=== PATIENT | female | born 1965 | race Caucasian/White ===

== ENCOUNTER 2020-09-17 07:50 | Outpatient (RCR) | payer SELFPAY ==
[2020-09-17] MEDS ORDERED: LISI1TAB26 PO (13:10)
== END 2020-09-17 13:17 | disposition home or self-care (01) ==
LOC: PREOP 07:50
PROVIDERS: ATTEND Surgery
DX: Z01.818 Encounter for other preprocedural examination (principal); K42.9 Umbilical hernia without obstruction or gangrene

== ENCOUNTER → 2020-09-21 | Outpatient (CLI) | payer SELFPAY ==
[~2020-09-21] MED LIST: LISI1TAB26 PO
--- NOTE | 2020-09-22 09:57 | NUR ---
Notified patient of positive COVID test. She reports no symptoms and was very disputatious in telling me that she didn't believe the results and that I was lying and preventing her in having surgery for the pain she was in. I assured her that Dr Sood would make the decision in her surgery and if she needed it due to risk of life it would be done. She hung up on me.
== END ==
LOC: LAB FS 08:56
PROVIDERS: ATTEND Surgery
DX: Z01.812 Encounter for preprocedural laboratory examination (principal); U07.1 COVID-19; K42.9 Umbilical hernia without obstruction or gangrene
CPT/HCPCS: 87635

== ENCOUNTER 2020-10-15 05:50 | Outpatient (RCR) | payer SELFPAY | END 2020-10-15 10:26 | disposition home or self-care (01) | LOC: PREOP 05:50 | PROVIDERS: ATTEND Surgery | DX: Z01.812 Encounter for preprocedural laboratory examination (principal); K42.9 Umbilical hernia without obstruction or gangrene ==

== ENCOUNTER 2020-10-22 06:04 | Day surgery (SDC) | payer OTHER ==
[2020-10-22] VITALS (10 sets, daily range): BP systolic 106–164; BP diastolic 8–91
[~2020-10-22] VITALS: Ht 160 cm; Wt 101.0 kg
[2020-10-22] MEDS ORDERED: ASPI-999 PO (06:52)
[2020-10-22] MEDS: LACTATED RINGERS 1,000 ML IV PRN ×2 (06:58→09:30)
[2020-10-22] MEDS ORDERED: ceFAZolin 2 GM IV Premixed 50 ML IV ONE (07:00)
[2020-10-22] MEDS ORDERED: GLYCOPYRROLATE 0.2 MG/ML (ROBINUL) 2 ML VIAL ONE (07:09)
[2020-10-22] MEDS ORDERED: SEVOFLURANE (ULTANE) 15 ML INHAL SOLN ONE ×2 (07:09→08:59)
[2020-10-22] MEDS ORDERED: MIDAZOLAM 2 MG/2 ML (VERSED) VIAL ONE (07:09)
[2020-10-22] MEDS ORDERED: ONDANSETRON 4 MG/2 ML (SDV) Z0FRAN ONE (07:09)
[2020-10-22] MEDS ORDERED: ROCURONIUM 10 MG/ML 5 ML SYRINGE IV ONE (07:09)
[2020-10-22] MEDS ORDERED: proPOfol 200 MG/20 ML (DIPRIVAN) VIAL IV ONE (07:09)
[2020-10-22] MEDS ORDERED: NEOSTIGMINE 3 MG/3 ML VIAL ONE (07:09)
[2020-10-22] MEDS ORDERED: LIDOCAINE PF 2% 5 ML (XYLOCAINE) VIAL ONE (07:09)
[2020-10-22] MEDS ORDERED: fentaNYL INJECTION 100 MCG/2 ML AMP ONE (07:09)
[2020-10-22 07:10] LABS: BASOPHILS % (AUTO) 1 % (0-10); EOSINOPHILS # (AUTO) 0.1 10^3/uL (0.0-0.3); EOSINOPHILS % (AUTO) 3 % (0-10); HEMATOCRIT 40 % (35-52); HEMOGLOBIN 13.2 g/dL (11.5-16.0); LYMPHOCYTES # (AUTO) 1.7 10^3/uL (1.0-4.0); LYMPHOCYTES % (AUTO) 30 % (12-44); MEAN CORPUSCULAR HEMOGLOBIN 29 pg (25-34); MEAN CORPUSCULAR HGB CONC 33 g/dL (32-36); MEAN CORPUSCULAR VOLUME 87 fL (80-99); MEAN PLATELET VOLUME 9.6 fL (9.0-12.2); MONOCYTES # (AUTO) 0.6 10^3/uL (0.0-1.0); MONOCYTES % (AUTO) 11 % (0-12); NEUTROPHILS # (AUTO) 3.1 10^3/uL (1.8-7.8); NEUTROPHILS % (AUTO) 56 % (42-75); PLATELET COUNT 220 10^3/uL (130-400); WHITE BLOOD COUNT 5.6 10^3/uL (4.3-11.0)
[2020-10-22] MEDS ORDERED: LIDOCAINE/EPI 1%-1:100,000 (XYLOCAINE) 50 ML ONE (07:21)
--- NOTE | 2020-10-22 09:06 | Progress Note-Post Operative ---
Post-Operative Progess Note Surgeon (s)/Milk Wagon Driver (s) Surgeon YASEMIN JAMA DO Milk Wagon Driver: Dr. Mark to assist in retraction dissection and closure. Pre-Operative Diagnosis UMBILICAL HERNIA Post-Operative Diagnosis Incarcerated umbilical hernia Procedure & Operative Findings Date of Procedure 10/22/20 Procedure Performed/Findings PROCEDURE: Laparoscopic incarcerated umbilical hernia repair with mesh. COMPLICATIONS: None. INDICATIONS: The patient is a 55, female with an incarcerated umbilical hernia, which has continued to increase in size and cause discomfort. The patient was explained the risk and benefits of the procedure and wished to proceed with the procedure. Consent was signed on the chart. DESCRIPTION OF PROCEDURE: The patient was taken into the operating suite, prepped and draped in sterile fashion. Surgical pause was performed. Local anesthetic was infiltrated in left upper quadrant. A 15 blade scalpel was used to make a small skin incision. Cautery was used to dissect down to the fascia, which was then scored and divided the muscle, went through the posterior sheath and a balloon trocar was inserted into the abdomen. The abdomen was then insufflated. A 5 mm trocar was placed in the right lower quadrant and a 5 mm trocar was placed in left lower quadrant. Incarcerated omentum was dissected out of hernia. The falciform was taken down partially with hook cautery. Echo Ventralight mesh was then inserted in the abdomen grabbed through the stab incision. The balloon was inflated on the mesh. Circumferential tacks were placed with a SecureStrap Tacker. The balloon was then removed and inner crown was created as well. The mesh was tacked with pressure being decreased. The 12 mm fascial defect was then closed using 0 Vicryl. The abdomen was then desufflated,the trocars were removed. The skin was then closed using 4-0 Monocryl in a running subcuticular fashion. The abdomen was washed and dried and Skin Affix was placed over the incisions. The patient tolerated procedure well without any complications. She was taken to recovery room in stable condition. Anesthesia Type general Estimated Blood Loss Estimated blood loss (mL): minimal Specimens/Packing Specimens Removed YASEMIN Escamilla DO Oct 22, 2020 09:06
[2020-10-22] MEDS ORDERED: DOCU-143 PO (09:07)
[2020-10-22] MEDS ORDERED: HYDR-4226 PO (09:07)
[2020-10-22] MEDS ORDERED: morphine INJ 10 MG/ML 1ML (SYR OR VIAL) IVP ONE (09:30)
[2020-10-22] MEDS ORDERED: ONDANSETRON 4 MG/2 ML (SDV) Z0FRAN IVP PRN (09:30)
[2020-10-22] MEDS ORDERED: HYDROmorphone 2 MG/ML VIAL (DILAUDID) IV ONE (09:30)
--- NOTE | 2020-10-22 09:35 | Anesthesia-General Post-Op ---
General Patient Condition Mental Status/LOC: Same as Preop Cardiovascular: Satisfactory Nausea/Vomiting: Absent Respiratory: Satisfactory Pain: Controlled Complications: Absent Post Op Complications Complications None Follow Up Care/Instructions Patient Instructions None needed. Anesthesia/Patient Condition Patient Condition Patient is doing well, C/O minimal nausea, stable vital signs, no apparent adverse anesthesia problems. DEVORA YATES DO Oct 22, 2020 09:35
[2020-10-22] MEDS ORDERED: HYDROcodone/APAP 5 MG/325 MG (LORTAB) TAB ONE (11:21)
[2020-10-22] MEDS ORDERED: HYDROcodone/APAP 5 MG/325 MG (LORTAB) TAB PO ONE (11:30)
== END 2020-10-22 11:30 ==
LOC: SDC 06:04
PROVIDERS: ATTEND Surgery
DX: K42.0 Umbilical hernia with obstruction, without gangrene (principal); I10 Essential (primary) hypertension; Z79.899 Other long term (current) drug therapy; Z83.3 Family history of diabetes mellitus
CPT/HCPCS: 49653; 84703; 85025; 87081; C1781; 36415